=== PATIENT | female | born 1940 | race Caucasian/White ===

== ENCOUNTER 2019-07-07 08:00 | Inpatient (IN) | payer OTHER ==
[~2019-07-07] VITALS: Ht 162.6 cm; Wt 81.2 kg
[~2019-07-07 08:00] MED LIST: CEFADROXIL500 MG PO; PERCOCET 5/3251 TAB PO; XARELTO10 MG PO
[2019-07-07] MEDS ORDERED: GLIMEPIRIDE4 MG PO (08:49)
[2019-07-07] MEDS ORDERED: FORTAMET500 MG PO (08:49)
[2019-07-07] MEDS ORDERED: ASPIR 8181 MG PO (08:49)
[2019-07-07] MEDS ORDERED: ATORVASTATIN CA20 MG PO (08:50)
[2019-07-07] MEDS ORDERED: LOSARTAN-HCTZ1 EAC2 PO (08:50)
[2019-07-07] MEDS ORDERED: TOPROL XL50 M1 PO (08:51)
[2019-07-07] MEDS ORDERED: FLUOXETINE HCL20 MG PO (08:51)
[2019-07-07] MEDS ORDERED: CLONAZEPAM1 MG PO (08:52)
[2019-07-07] MEDS ORDERED: TRAZODONE HCL100 MG PO (08:52)
[2019-07-14] MEDS ORDERED: CEFADROXIL500 MG PO (13:36)
[2019-07-14] MEDS ORDERED: PERCOCET 5-3251 EACH PO (13:36)
[2019-07-14] MEDS ORDERED: ELIQUIS2.5 MG PO (13:36)
== END 2019-07-14 17:10 | DRG 467 ==
LOC: O/R 08:00 → SURG 07-12 05:17 → O/R 07-12 05:17 → SURH 07-12 07:00 → SURG 07-12 14:27
PROVIDERS: ADMIT Orthopaedic Surgery
PROC: 0SRC0J9 Replacement of Right Knee Joint with Synthetic Substitute, Cemented, Open Approach (ICD-10-PCS; 2019-07-12)
PROC: 0SNC0ZZ Release Right Knee Joint, Open Approach (ICD-10-PCS; 2019-07-12)
PROC: 0SPC0JZ Removal of Synthetic Substitute from Right Knee Joint, Open Approach (ICD-10-PCS; principal; 2019-07-12 07:00)
DX: T84.018A Broken internal joint prosthesis, other site, initial encounter (principal); M80.00XA Age-related osteoporosis with current pathological fracture, unspecified site, initial encounter for fracture; D62 Acute posthemorrhagic anemia; T84.032A Mechanical loosening of internal right knee prosthetic joint, initial encounter; M17.11 Unilateral primary osteoarthritis, right knee; M85.461 Solitary bone cyst, right tibia and fibula; M25.661 Stiffness of right knee, not elsewhere classified; M23.8X1 Other internal derangements of right knee; F41.8 Other specified anxiety disorders; F32.9 Major depressive disorder, single episode, unspecified; Z96.651 Presence of right artificial knee joint